=== PATIENT | female | born 1990 | race Caucasian/White ===

== ENCOUNTER → 2024-01-14 08:27 | Outpatient (REF) | payer BC, SELFPAY | LOC: RCS 08:27 | PROVIDERS: ATTENDING PHYSICIAN Nurse Practitioner Psychiatric/Mental Health | DX: Z79.899 Other long term (current) drug therapy (principal) | CPT/HCPCS: 93005 ==

== ENCOUNTER 2024-05-19 09:08 | Emergency (ER) | payer SELFPAY ==
[2024-05-19 09:13] VITALS: BP 146/98
--- NOTE | 2024-05-19 09:45 | ED.GENMED ---
History of Present Illness
General
Chief Complaint: Head Injury
Source: patient
Exam Limitations: none
Time Seen by Provider: 05/19/24 09:37
History of Present Illness
History of Present Illness:
33-year-old female presents for evaluation of head injury. She was sent in by the urgent care for imaging of her head. She sit up and hit the top of her head 2 days ago but notes persistent cognitive fog trouble tracking posterior head discomfort
and neck pain. X-rays of the neck were obtained at the urgent care which showed a potential abnormality in the sella turcica and was sent here for CT scan. She denies any unilateral numbness weakness. She is not anticoagulated. No other
complaints at this time
Phy Exam
Physical Exam
Physical Exam:
General: Well-appearing female no acute respiratory distress
HEENT: Normocephalic atraumatic pupils equal round reactive to light TMs normal
Heart: Regular rate and rhythm no murmurs
Lungs: Clear to auscultation bilaterally no wheezing
Neurologic exam: Alert and oriented normal gait finger-nose intact extract motion intact. Subtle nystagmus no facial asymmetry
Musculoskeletal exam: Mild diffuse paraspinous tenderness about the cervical spine
Course
Orders/Labs/Results
Orders:
Orders
05/19/24 09:45
CT Head W/o Iv Contrast Urgent
Comment:
Reason For Exam: head injury
Vital Signs
Initial and Last Documented VS:
Initial Vital Signs
Temp Pulse Resp BP Pulse Ox
99.0 F 95 18 146/98 96
05/19/24 09:13 05/19/24 09:13 05/19/24 09:13 05/19/24 09:13 05/19/24 09:13
Last Documented Vital Signs
Temp Pulse Resp BP Pulse Ox
99.0 F 95 18 146/98 96
05/19/24 09:13 05/19/24 09:13 05/19/24 09:13 05/19/24 09:13 05/19/24 09:13
MDM/Problems Addressed
Differential Diagnosis Includes:
Patient sent in for CAT scan of head for evaluation of head injury and possible abnormal finding on x-ray. Fracture could include skull fracture versus intracranial hemorrhage versus concussion for cervical strain
*Critical Care Note
Total Time (30-74mins, 75-104mins- exclusive of procedures): Not Applicable
Update Note
Update Note:
CT of head negative. Patient reassured. Suspect postconcussive syndrome. Recommended continued cognitive rest and follow-up. Stable for discharge
ED Attending Note
-
Portions of this chart may have been created with voice recognition software.� Occasional wrong word or��sound alike� substitutions may have occurred due to the inherent limitations of voice recognition software.
Discharge Plan
Departure
Patient Disposition: Home (Routine Discharge)
Date of Disposition: 05/19/24
Time of Disposition: 11:10
Patient with high blood pressure during this ER visit?: No
Discharge Problem:
Post concussion syndrome
Instructions: Concussion, Adult (DC)
Prescriptions:
No Action
lamotrigine 200 mg Tablet
200 mg PO DAILY@1130
quetiapine [Seroquel] 300 mg Tablet
300 mg PO DAILY@1130
fluoxetine 10 mg Tablet
50 mg PO DAILY@1130
dextroamphetamine-amphetamine [Adderall XR] 30 mg Capsule,Extended Release 24hr
30 mg PO DAILY@1999
Rx Instructions:
8pm
amoxicillin-pot clavulanate 875-125 mg tablet
1 tab PO Q12 Qty: 14 0RF
ibuprofen 200 mg tablet
400 - 600 mg PO Q6HPRN PRN (Reason: moderate pain) Qty: 1 0RF
oxycodone 5 mg tablet
5 mg PO Q6H PRN (Reason: pain) Qty: 20 0RF
Rx Instructions:
on going treatment
dicyclomine 10 mg capsule
10 mg PO QID PRN (Reason: abdominal pain) Qty: 10 0RF
ondansetron 4 mg tablet,disintegrating
4 mg PO Q8H PRN (Reason: nausea and vomiting) Qty: 10 0RF
Referrals:
NONE,* [Family Provider] -
Activity Restrictions/Additional Instructions:
Continue with cognitive rest. Use ibuprofen or Tylenol for pain. Return if worse otherwise follow-up with your treating physician
Interventions
Interventions:
*Risk Screen - Suicide Last Done: 05/19/24 09:13
*General Assessment Last Done: 05/19/24 09:13
*Neglect/Abuse Screening Last Done: 05/19/24 09:13
*ED COVID-19 Vaccine History Last Done: 05/19/24 09:13
ED- Neurological Assessment Last Done: 05/19/24 09:40
ED-Skin Assessment Last Done: 05/19/24 09:41
Discharge Date and Time
Print Language: ICELANDIC
[2024-05-19 11:20] VITALS: BP 135/90
== END 2024-05-19 11:20 | disposition home or self-care (01) ==
LOC: EMR 09:08
PROVIDERS: EMERGENCY PHYSICIAN Emergency Medicine
DX: F07.81 Postconcussional syndrome (principal)
CPT/HCPCS: 99284; 70450